=== PATIENT | male | born 1950 | race Caucasian/White ===

== ENCOUNTER 2021-07-18 23:40 | Emergency (ER) | payer MEDICARE ==
[~2021-07-18] VITALS: Ht 175.3 cm; Wt 99.8 kg
[2021-07-19] MEDS ORDERED: FLOMAX0.4 MG PO (01:39)
[2021-07-19] MEDS ORDERED: ONDANSETRON ODT8 MG PO (01:39)
[2021-07-19] MEDS ORDERED: PERCOCET 5-3251 EACH PO (01:39)
[2021-07-19] MEDS ORDERED: CIPRO500 MG PO (01:48)
== END 2021-07-19 02:04 | disposition home or self-care (01) ==
LOC: ED 23:40
DX: N13.2 Hydronephrosis with renal and ureteral calculous obstruction (principal); I10 Essential (primary) hypertension; E11.9 Type 2 diabetes mellitus without complications; E78.5 Hyperlipidemia, unspecified; Z88.5 Allergy status to narcotic agent
CPT/HCPCS: 74176; 80053; 81001; 85025; 96374; 99284-25; A9270; J1885